=== PATIENT | female | born 1965 | race Caucasian/White ===

== ENCOUNTER 2018-05-20 07:36 | Emergency (ER) | payer BC ==
--- NOTE | 2018-05-20 07:42 | EDPHY ---
H & P Time Seen by Provider: 05/20/18 07:42 HPI/ROS: CHIEF COMPLAINT: Epigastric abdominal pain HISTORY OF PRESENT ILLNESS: Started with symptoms on Monday evening about 30 min after eating. Feels a sharp pain in her epigastric area that has been on off for the past 36 hr. Last episode was this morning at 4:30 a.m.. She would try to drink water and then about 5-10 seconds later would feel a sharp pain in her epigastrium that was severe, she says it is "like the movie Alien" something is trying to come out of my stomach. Currently she is not symptomatic. Symptoms were not associated with belching or burping or chest pain or diarrhea. No fever or chills. Was severe and now is almost gone. Isn' t really able to eat or drink anything this morning because it will cause symptoms. REVIEW OF SYSTEMS: Eye: no change in vision ENT: no sore throat Cardiac: no chest pain or syncope Pulmonary: no cough or SOB Abdomen: HPI Musculoskeletal: no back pain Skin: no rash Neuro: no headache Constitutional: no fever : no urinary symptoms A comprehensive 10 point review of systems is otherwise negative aside from elements mentioned in the history of present illness. PAST MEDICAL HISTORY: Diverticulosis, and thyroid disease. Appendectomy. Social history: Nonsmoker General Appearance: Alert and conversant, cooperative. Eyes: No scleral icterus. ENT, Mouth: Normal mucous membranes. Respiratory: Normal respiratory effort, breath sounds equal, lungs are clear to auscultation. Cardiovascular: Regular rate and rhythm. Gastrointestinal: Abdomen is soft and non tender. Mild epigastric tenderness but no Morrison sign and no peritoneal signs. Neurological: Alert, face symmetric, normal motor and sensory in extremities. Skin: Warm and dry, no rashes. Musculoskeletal: No peripheral edema. Psychiatric: Not agitated. Emergency Department course/MDM: Normal saline 1 L, GI cocktail, gallbladder ultrasound and labs to include LFT and lipase. 841: Normal ultrasound per Dr. Scruggs. 950: Results discussed with the patient. She is currently asymptomatic. Recommended treatment with oral antacid or Zantac, more likely GERD than pancreatitis or bowel obstruction or perforated ulcer. Her symptoms did resolve in the ED after GI cocktail. EKG performed does not show acute ischemic changes. I think that ACS or WI would be unlikely in the context of reliable reproduction of her symptoms with oral intake this morning. Smoking Status: Never smoked Constitutional: Initial Vital Signs Temperature (C) 37 C 05/20/18 07:39 Heart Rate 60 05/20/18 07:39 Respiratory Rate 16 05/20/18 07:39 Blood Pressure 129/78 H 05/20/18 07:39 O2 Sat (%) 98 05/20/18 07:39 O2 Delivery Mode Room Air Allergies/Adverse Reactions: No Known Allergies Allergy (Unverified 05/20/18 07:39) Home Medications: Medication Instructions Recorded Levothyroxine 05/20/18 Medical Decision Making - Diagnostics EKG Interpretation: 12-lead EKG interpreted by me; official reading is in computer system. My interpretation is sinus rhythm rate [address] changes. Imaging Results: Imaging Impressions Abdomen Ultrasound 05/20/18 07:58 Impression: Normal right upper quadrant abdominal ultrasound. Results called and discussed with Bharat Ruiz MD on May 20, 2018 at 8:42 a.m. Imaging: Discussed imaging studies w/ on call pharmacy technician Radiologist Differential Diagnosis: Differential considered including but not limited to ACS or WI, pancreatitis, gallbladder disease, GERD or reflux, ulcer, diverticulitis or bowel obstruction. - Data Points Laboratory Results: Laboratory Results 05/20/18 08:10 05/20/18 08:10 05/20/18 05/20/18 05/20/18 08:10 08:10 08:10 WBC 4.14 10^3/uL 10^3/uL (3.80-9.50) RBC 4.43 10^6/uL 10^6/uL (4.18-5.33) Hgb 12.3 g/dL L g/dL (12.6-16.3) Hct 37.2 % L % (38.0-47.0) MCV 84.0 fL fL (81.5-99.8) MCH 27.8 pg L pg (27.9-34.1) MCHC 33.1 g/dL g/dL (32.4-36.7) RDW 12.9 % % (11.5-15.2) Plt Count 259 10^3/uL 10^3/uL (150-400) MPV 9.3 fL fL (8.7-11.7) Neut % (Auto) 65.4 % % (39.3-74.2) Lymph % (Auto) 23.9 % % (15.0-45.0) Mills % (Auto) 8.5 % % (4.5-13.0) Eos % (Auto) 1.0 % % (0.6-7.6) Baso % (Auto) 1.0 % % (0.3-1.7) Nucleat RBC Rel Count 0.0 % % (0.0-0.2) Absolute Neuts (auto) 2.71 10^3/uL 10^3/uL (1.70-6.50) Absolute Lymphs (auto) 0.99 10^3/uL L 10^3/uL (1.00-3.00) Absolute Monos (auto) 0.35 10^3/uL 10^3/uL (0.30-0.80) Absolute Eos (auto) 0.04 10^3/uL 10^3/uL (0.03-0.40) Absolute Basos (auto) 0.04 10^3/uL 10^3/uL (0.02-0.10) Absolute Nucleated RBC 0.00 10^3/uL 10^3/uL (0-0.01) Immature Gran % 0.2 % % (0.0-1.1) Immature Gran # 0.01 10^3/uL 10^3/uL (0.00-0.10) Sodium 141 mEq/L mEq/L (135-145) Potassium 4.0 mEq/L mEq/L (3.5-5.2) Chloride 109 mEq/L mEq/L (97-110) Carbon Dioxide 26 mEq/l mEq/l (22-31) Anion Gap 6 mEq/L mEq/L (6-14) BUN 16 mg/dL mg/dL (7-23) Creatinine 0.8 mg/dL mg/dL (0.6-1.0) Estimated GFR > 60 Glucose 103 mg/dL H mg/dL (70-100) Calcium 9.0 mg/dL mg/dL (8.5-10.4) Total Bilirubin 0.5 mg/dL mg/dL (0.1-1.4) Conjugated Bilirubin 0.2 mg/dL mg/dL (0.0-0.5) Unconjugated Bilirubin 0.3 mg/dL mg/dL (0.0-1.1) AST 23 IU/L IU/L (14-46) ALT 23 IU/L IU/L (9-52) Alkaline Phosphatase 49 IU/L IU/L (38-126) Total Protein 6.1 g/dL L g/dL (6.3-8.2) Albumin 4.0 g/dL g/dL (3.5-5.0) Lipase 222 IU/L IU/L (23-300) Beta HCG, Qual NEGATIVE Medications Given: Discontinued Medications Al Hydroxide/Mg Hydroxide (Maalox Susp) 30 ml PO ONCE ONE Stop: 05/20/18 07:59 Last Admin: 05/20/18 08:42 Dose: 30 ml Hyoscyamine Sulfate (Levsin, Hyomax-Sl) 0.25 mg PO ONCE ONE Stop: 05/20/18 07:59 Last Admin: 05/20/18 08:42 Dose: 0.25 mg Sodium Chloride (Ns) 1,000 mls @ 0 mls/hr IV EDNOW ONE; Wide Open PRN Reason: Protocol Stop: 05/20/18 07:59 Last Admin: 05/20/18 08:41 Dose: 1,000 mls Lidocaine (Lidocaine 2% Viscous) 15 ml PO ONCE ONE Stop: 05/20/18 07:59 Last Admin: 05/20/18 08:42 Dose: 15 ml Departure - Departure Disposition: Home, Routine, Self-Care Clinical Impression: Abdominal pain Qualifiers: Abdominal location: epigastric Qualified Code(s): R10.13 - Epigastric pain Condition: Good Instructions: Acute Abdominal Pain (ED) Additional Instructions: Maalox or Mylanta 30 min before meals, or Zantac as on the box twice a day for the next 10 days orally. Decrease caffeine intake. Referrals: Rina Luque MD [Primary Care Provider] - As per Instructions
[2018-05-20] MEDS ORDERED: NS 1,000 ML IV ONE (07:58)
[2018-05-20] MEDS ORDERED: HYOSCYAMINE SULFATE 0.125 MG TAB PO ONE (07:58)
[2018-05-20] MEDS ORDERED: MAG HYDROX/AL HYDROX/SIMETH 30 ML UDCUP PO ONE (07:58)
[2018-05-20] MEDS ORDERED: LIDOCAINE 2% VISCOUS 15 ML UDCUP PO ONE (07:58)
[2018-05-20 08:45] LABS: PLATELET COUNT 259 10^3/uL (150-400)
[2018-05-20 10:15] VITALS: BP 121/64
--- NOTE | 2018-05-20 10:15 | CPEKG ---
Test Reason : OPEN Blood Pressure : / mmHG Vent. Rate : 047 BPM Atrial Rate : 046 BPM P-R Int : 180 ms QRS Dur : 069 ms QT Int : 470 ms P-R-T Axes : 066 051 065 degrees QTc Int : 416 ms Sinus bradycardia Probable left atrial enlargement Probable left ventricular hypertrophy Confirmed by Akira Eid ([id number]) on 05/20/2018 10:14:14 AM Referred By: AKIRA EID Confirmed By:Akira Eid
== END 2018-05-20 10:36 | disposition home or self-care (01) ==
DX: R10.13 Epigastric pain (principal); E86.9 Volume depletion, unspecified

== ENCOUNTER → 2018-06-14 | Outpatient (CLI) | payer BC | LOC: FIMAGING 08:26 | PROVIDERS: ATTEND Physician Assistant | DX: R10.13 Epigastric pain (principal) | CPT/HCPCS: 78227; A9537 ==

== ENCOUNTER → 2018-07-26 | Outpatient (CLI) | payer OTHER | LOC: FIMAGING 08:36 | PROVIDERS: ATTEND Internal Medicine Interventional Cardiology | DX: R07.9 Chest pain, unspecified (principal); K30 Functional dyspepsia ==